=== PATIENT | female | born 1965 | race Caucasian/White ===

== ENCOUNTER 2018-06-21 14:16 | Observation (INO) ==
[2018-06-21] MEDS ORDERED: Aspirin 325 MG Tablet PO ONE (14:36)
--- NOTE | 2018-06-21 14:39 | ED ---
HPI General Chief complaint: Shortness of Breath/Dyspnea Stated complaint: SOB/Tightness Neck Area/Sinus Complaint Time Seen by Provider: 06/21/18 14:24 History of Present Illness HPI narrative: This is a 52-year-old female who presents by private vehicle for evaluation. For the past 5 days she has had dyspnea and chest tightness and a tightness sensation in her neck. Symptoms are constant but worse when she is feeling anxious or thinking about the of her mother. She reports that her mother recently, she traveled to [place] for the from June 06 - June 11. She reports that she has had a cough and congestion and postnasal drip for the past 2-3 weeks for which she has been using Claritin, Benadryl, albuterol inhaler and prednisone. She came to the emergency room today because the chest tightness and dyspnea persisted. She denies any personal history of cardiac disease but she does report paternal history with her father dying of an [place] at age 46. She denies tobacco use. She denies abdominal pain, nausea, vomiting, leg swelling. No history of diabetes, hypertension, hyperlipidemia. No other complaints at this time. Related Data Home Medications Medication Instructions Recorded Confirmed prednisolone 20 mg PO DAILY 06/21/18 06/21/18 Allergies Allergy/AdvReac Type Severity Reaction Status Date / Time Sulfa (Sulfonamide Allergy Generalized Verified 06/21/18 14:22 Antibiotics) Rash Review of Systems ROS: all other systems reviewed are negative PMFSH Social History Social History Substance History: No History of Abuse Smoking Status: Former smoker How Often Do You Have a Drink Containing Alcohol: Never Recent Travel in [facility] within the Last 8 Weeks: No Recent Out of Country Travel within the Last 8 Weeks: No Immunization History Tetanus Immunization: Unsure Exam Narrative Exam Narrative: GENERAL: This is a well-developed well-nourished female who appears anxious. Her vital signs have been reviewed. SKIN: Warm and dry. HEAD: Atraumatic. Normocephalic. EYES: Pupils equal and round. No scleral icterus. No injection or drainage. ENT: No nasal bleeding or discharge. Mucous membranes pink and moist. NECK: Trachea midline. No JVD. CARDIOVASCULAR: Regular rate and rhythm. No murmur appreciated. RESPIRATORY: No accessory muscle use. Clear to auscultation. Breath sounds equal bilaterally. No crackles no wheezing no rhonchi. GASTROINTESTINAL: Abdomen soft, non-tender, nondistended. Hepatic and splenic margins not palpable. MUSCULOSKELETAL: No obvious deformities. No clubbing. No cyanosis. No edema. NEUROLOGICAL: Awake and alert. No obvious cranial nerve deficits. Motor grossly within normal limits. Normal speech. Course Initial Documented Vital Signs Temperature 98.2 F 06/21/18 14:19 Pulse Rate 76 06/21/18 14:19 Respiratory Rate 18 06/21/18 14:19 Blood Pressure 151/71 H 06/21/18 14:19 Pulse Oximetry 99 06/21/18 14:19 Last Documented Vital Signs Temperature 98.2 F 06/21/18 14:19 Pulse Rate 89 06/21/18 14:34 Respiratory Rate 22 06/21/18 14:34 Blood Pressure 154/79 H 06/21/18 14:34 Pulse Oximetry 99 06/21/18 14:34 Medical Decision Making MDM Narrative Medical decision making narrative: The patient was placed on ECG monitoring pulse oximetry. Lab work, chest x-ray ordered. The patient was given 325 mg aspirin 0.5 mg Ativan. EKG reveals sinus rhythm, minimal ST depression in the anterior leads are noted. Lab work and imaging studies have been reviewed. D-dimer is negative. Initial cardiac enzymes are within normal limits. Chest x-ray reveals no acute abnormality's. Liver enzymes are mildly elevated. On reexamination she feels improved. At this point in time the patient was offered admission into the chest pain center for serial cardiac enzymes and rule out purposes and she is agreeable with that. Discussed with my attending who agrees with plan of care. A nighttime dose of Xanax has been ordered. Medical Screen Exam Complete: Yes Emergency Medical Condition: Yes Differential Diagnosis Differential Diagnosis: Anxiety, PE, pneumothorax, bronchitis, pneumonia, acute coronary syndrome, pericarditis, myocarditis Lab Data Result diagrams: 06/21/18 14:36 06/21/18 14:36 Lab Results 06/21/18 06/21/18 06/21/18 Range/Units 14:36 14:36 14:36 WBC 10.6 (4.0-11.0) th/mm3 RBC 4.83 (4.00-5.30) mil/mm3 Hgb 15.0 (11.6-15.3) gm/dL Hct 43.9 (35.0-46.0) % MCV 90.7 (80.0-100.0) fL MCH 31.1 (27.0-34.0) pg MCHC 34.3 (32.0-36.0) % RDW 13.0 (11.6-17.2) % Plt Count 328 (150-450) th/mm3 MPV 7.3 (7.0-11.0) fL Neut % (Auto) 79.3 H (16.0-70.0) % Lymph % (Auto) 15.5 (9.0-44.0) % [place] % (Auto) 4.7 (0.0-8.0) % Eos % (Auto) 0.0 (0.0-4.0) % Baso % (Auto) 0.5 (0.0-2.0) % Neut # (Auto) 8.4 H (1.8-7.7) th/mm3 Lymph # (Auto) 1.6 (1.0-4.8) th/mm3 [place] # (Auto) 0.5 (0.0-0.9) th/mm3 Eos # (Auto) 0.0 (0.0-0.4) th/mm3 Baso # (Auto) 0.1 (0.0-0.2) th/mm3 WBC Differential . Differential Comment Auto diff final PT 10.2 (9.8-11.6) sec INR 1.0 Ratio APTT 24.7 (23.4-31.7) sec D-Dimer Quant (PE/DVT) 0.22 (0.00-0.50) mg/L FEU Sodium 142 (136-145) meq/L Potassium 3.5 (3.5-5.1) meq/L Chloride 110 H (98-107) meq/L Carbon Dioxide 22.3 (21.0-32.0) meq/L Anion Gap 10 (5-15) meq/L BUN 12 (7-18) mg/dL Creatinine 0.82 (0.50-1.00) mg/dL Estimated GFR 73 L (>89) mL/min Random Glucose 120 H (74-106) mg/dL Calcium 8.8 (8.5-10.1) mg/dL Total Bilirubin 0.6 (0.2-1.0) mg/dL AST 26 (15-37) U/L ALT 60 H (10-53) U/L Alkaline Phosphatase 140 H (45-117) U/L Total Creatine Kinase 135 (26-192) U/L CK-MB (CK-2) 1.5 (0.5-3.6) ng/mL Troponin I Less than 0.02 L (0.02-0.05) ng/mL Total Protein 7.9 (6.4-8.2) g/dL Albumin 4.1 (3.4-5.0) g/dL Imaging Data Radiologist's impression: Chest X-Ray 06/21/18 14:36 CONCLUSION: No acute cardiopulmonary process. Discharge Plan Discharge Disposition Patient Disposition: ED Admit(ED Internal Use Only) Discharge Condition Condition: Stable Discharge Order Discharge Orders: ED Use Only Admit Order (Routine); Ordered 06/21/18 Ordered By: Phoenix Esparza Discharge Details Diagnosis: Chest pain Physicians Team ED Provider: Leo Hardin ED Midlevel Provider: Phoenix Esparza Rxs /Orders / Referrals /Forms Prescriptions: No Action prednisolone 5 mg Tablet 20 mg PO DAILY RF: 0 Discharge Interventions Interventions: Vital Signs Last Done: 06/21/18 14:34 Status ED Status: With Doctor
--- NOTE | 2018-06-21 14:53 | XR ---
EXAM DATE: 06/21/2018 2:51 PM EST AGE/SEX: 52 years / Female INDICATIONS: Short of breath, chest tightness. CLINICAL DATA: This is the patient's initial encounter. Patient reports that signs and symptoms have been present for 1 day and indicates a pain score of 0/10. MEDICAL/SURGICAL HISTORY: None. None. COMPARISON: No prior exams available for comparison. FINDINGS: A single AP view of the chest demonstrates the lungs to be symmetrically aerated without evidence of mass, infiltrate or effusion. The cardiomediastinal contours are unremarkable. Osseous structures a re intact. CONCLUSION: No acute cardiopulmonary process. Electronically signed by: Lamont Canas MD Board Certified Radiologist 06/21/2018 2:52 PM EST
[2018-06-21 14:55] LABS: Baso # (Auto) 0.1 th/mm3 (0.0-0.2); Baso % (Auto) 0.5 % (0.0-2.0); Hematocrit 43.9 % (35.0-46.0); Lymph # (Auto) 1.6 th/mm3 (1.0-4.8); Lymph % (Auto) 15.5 % (9.0-44.0); Mean Corpuscular HGB Conc 34.3 % (32.0-36.0); Mean Corpuscular Hemoglobin 31.1 pg (27.0-34.0); Mean Corpuscular Volume 90.7 fL (80.0-100.0); Mean Platelet Volume 7.3 fL (7.0-11.0); Mono # (Auto) 0.5 th/mm3 (0.0-0.9); Mono % (Auto) 4.7 % (0.0-8.0); Neut # (Auto) 8.4 th/mm3 (1.8-7.7); Neut % (Auto) 79.3 % (16.0-70.0); Platelet Count 328 th/mm3 (150-450); Red Blood Count 4.83 mil/mm3 (4.00-5.30); White Blood Count 10.6 th/mm3 (4.0-11.0)
[2018-06-21 15:17] LABS: Activated Partial Thrombo Time 24.7 sec (23.4-31.7); Prothrombin Time 10.2 sec (9.8-11.6)
[2018-06-21 15:21] LABS: D-Dimer 0.22 mg/L FEU (0.00-0.50)
[2018-06-21 15:30] LABS: Alanine Aminotransferase 60 U/L (10-53); Albumin 4.1 g/dL (3.4-5.0); Anion Gap 10 meq/L (5-15); Aspartate Aminotransferase 26 U/L (15-37); Blood Urea Nitrogen 12 mg/dL (7-18); Calcium 8.8 mg/dL (8.5-10.1); Carbon Dioxide 22.3 meq/L (21.0-32.0); Chloride 110 meq/L (98-107); Glomerular Filtration Rate 73 mL/min (>89); Glucose,Random 120 mg/dL (74-106); Potassium 3.5 meq/L (3.5-5.1); Sodium 142 meq/L (136-145)
[2018-06-21 15:34] LABS: Alkaline Phosphatase 140 U/L (45-117); Creatine Kinase 135 U/L (26-192); Total Protein 7.9 g/dL (6.4-8.2)
[2018-06-21 15:47] LABS: Creatine Kinase MB 1.5 ng/mL (0.5-3.6)
[2018-06-21] MEDS ORDERED: ALPRAZolam 0.5 MG Tablet PO ONE (15:51)
[2018-06-21] MEDS ORDERED: Acetaminophen 500 MG Tablet PO PRN (16:58)
[2018-06-21 17:24] LABS: Creatine Kinase 110 U/L (26-192)
[2018-06-21 18:09] VITALS: RESP 16
[2018-06-21 19:40] LABS: Creatine Kinase 89 U/L (26-192)
[2018-06-22 04:39] VITALS: BP 87/51; PULSE 59; TEMP 98.3
[2018-06-22 07:47] VITALS: O2SAT 97
--- NOTE | 2018-06-22 08:01 | P.HPCA ---
History of Present Illness Primary Care Physician: No Primary Care Physician Chief Complaint: Chest pain History of Present Illness: This is a 52-year-old female that presents to ED via private vehicle without history of hypertension, hyperlipidemia, diabetes, CAD complaining of 1 week central chest tightness, some mild shortness of breath, nonproductive cough, and postnasal drainage for the past week. The chest tightness has been constant. Found nothing to worsen. She is found that taking Benadryl seem to help. She is wondering if it is related to anxiety and states she just got back from [place] for the of her mother. Denies nausea or diaphoresis. Denies fevers. There have been sick contacts. Denies swelling in legs or calf pain. Denies history of hypertension, hyperlipidemia, diabetes, and CAD. She is a lifetime non-smoker. She is a schoolteacher. Her father at age 46 of a myocardial infarction. - Diagnosis (1) Atypical chest pain Review of Systems General: Recently traveled to and from [place] her mother's . Patient denies fevers, chills. HEENT: Patient denies headache, sore throat, difficulty swallowing. Complains of postnasal drainage. Cardiovascular: Has the chest discomfort as mentioned above. Denies sensation of heart beating rapidly or irregularly. No syncope. Denies diaphoresis. Respiratory: Planes of mild shortness of breath. Nonproductive cough. Denies inspirational chest discomfort. Denies wheezing or hemoptysis. GI: Patient denies nausea, vomiting, diarrhea, abdominal pain, bloody stools. Musculoskeletal: Patient denies joint pain or edema. Denies calf pain or edema. Neurovascular: Patient denies numbness, tingling, weakness in extremities. Denies headache. Endocrine: Denies polyuria and polydipsia. Hematologic: Denies easy bruising. Skin: Denies rash or itching. PMFSH - History History Provided By: Patient - Tobacco History Second Hand Smoke Exposure: No Tobacco Use In Past 30 Days: No Smoking Status: Former smoker Tobacco Type: Cigarettes - Alcohol History How Often Do You Have a Drink Containing Alcohol: Never - Substance Use History Substance History: No History of Abuse - Travel History Recent Travel in the [place] Within the Last 8 Weeks: No Recent Travel Out of the Country Within the Last 8 Weeks: No - Immunization History Tetanus Immunization: Unsure Medications and Allergies Active Medications: Active Medications Acetaminophen (Tylenol) 500 mg PO Q6H PRN PRN Reason: PAIN SCALE 1-5 Hydrocodone Bitart/Acetaminophen ([place] 7.5/325) 1 tab PO Q6H PRN PRN Reason: PAIN SCALE 6-10 Clonidine HCl (Catapres) 0.1 mg PO Q3H PRN PRN Reason: SBP OVER 165/ DBP OVER 110 Ondansetron HCl (Zofran Inj) 4 mg IV.PUSH Q4H PRN PRN Reason: FOR NAUSEA/VOMITING Sodium Chloride (Ns Flush) 2 ml IV.FLUSH UNSCH PRN PRN Reason: FLUSH AFTER USING IV ACCESS Last Admin: 06/21/18 15:01 Dose: 2 ml Sodium Chloride (Ns Flush) 2 ml IV.FLUSH BID MALKA Last Admin: 06/21/18 21:53 Dose: 2 ml Sodium Chloride (Ns Flush) 2 ml IV.FLUSH PRN PRN PRN Reason: FLUSH AFTER USING IV ACCESS Allergies Allergy/AdvReac Type Severity Reaction Status Date / Time Sulfa (Sulfonamide Allergy Generalized Verified 06/21/18 14:22 Antibiotics) Rash Home Medications Medication Instructions Recorded Confirmed Type prednisolone 20 mg PO DAILY 06/21/18 06/21/18 History Exam Vital signs: Vital Signs 06/21/18 14:19 06/21/18 14:34 06/21/18 16:47 Temperature 98.2 F Pulse Rate 76 89 82 Respiratory Rate 18 22 20 Blood Pressure 151/71 H 154/79 H 91/55 L Pulse Oximetry 99 99 97 06/21/18 18:06 06/21/18 20:00 06/22/18 00:00 Temperature 98.2 F 98.6 F Pulse Rate 72 62 54 L Respiratory Rate 16 16 Blood Pressure 92/53 L 74/45 L Pulse Oximetry 95 96 06/22/18 00:25 06/22/18 03:51 06/22/18 04:00 Temperature 98.6 F 98.3 F Pulse Rate 76 58 L 59 L Respiratory Rate 16 Blood Pressure 76/56 L 93/63 L 87/51 L Pulse Oximetry 98 06/22/18 07:46 Temperature Pulse Rate Respiratory Rate Blood Pressure Pulse Oximetry 97 Intake & Output 06/21/18 06/22/18 06/22/18 18:59 06:59 18:59 Weight 67.132 kg Other: # Voids 0 Weight On Admission 67.132 kg Narrative: GENERAL: This is a well-nourished, well-developed patient, in no apparent distress. Patient speaks in clear complete sentences. Patient is pleasant. HEENT: Head is atraumatic and normocephalic. Neck is supple without lymphadenopathy and trachea is midline. No JVD or carotid bruits. CARDIOVASCULAR: Regular rate and rhythm without murmurs, gallops, or rubs. RESPIRATORY: Clear to auscultation. Breath sounds equal bilaterally. No wheezes , rales, or rhonchi. Chest wall is nontender. No use of accessory muscles. GASTROINTESTINAL: Abdomen is nontender, nondistended. Abdomen soft. No obvious pulsatile mass or bruit. No CVA tenderness. Strong femoral pulses bilaterally. Normal bowel sounds in all quadrants. MUSCULOSKELETAL: Patient is moving upper and lower extremities freely. No calf tenderness or edema, no Homans sign. Strong pulses in upper and lower extremities. NEUROLOGICAL: Patient is alert and oriented. Cranial nerves 2-12 are grossly intact. No focal deficits and speech is clear. SKIN: No rash and turgor is normal. Results 06/21/18 14:36 06/21/18 14:36 Cardiac Enzymes 06/21/18 06/21/18 06/21/18 Range/Units 14:36 16:42 19:00 AST 26 (15-37) U/L CK-MB (CK-2) 1.5 (0.5-3.6) ng/mL Troponin I Less than 0.02 L Less than 0.02 L Less than 0.02 L (0.02-0.05) ng/mL Coagulation 06/21/18 Range/Units 14:36 PT 10.2 (9.8-11.6) sec APTT 24.7 (23.4-31.7) sec CBC 06/21/18 Range/Units 14:36 WBC 10.6 (4.0-11.0) th/mm3 RBC 4.83 (4.00-5.30) mil/mm3 Hgb 15.0 (11.6-15.3) gm/dL Hct 43.9 (35.0-46.0) % Plt Count 328 (150-450) th/mm3 Neut # (Auto) 8.4 H (1.8-7.7) th/mm3 Lymph # (Auto) 1.6 (1.0-4.8) th/mm3 [place] # (Auto) 0.5 (0.0-0.9) th/mm3 Eos # (Auto) 0.0 (0.0-0.4) th/mm3 Baso # (Auto) 0.1 (0.0-0.2) th/mm3 Comprehensive Metabolic Panel 06/21/18 Range/Units 14:36 Sodium 142 (136-145) meq/L Potassium 3.5 (3.5-5.1) meq/L Chloride 110 H (98-107) meq/L Carbon Dioxide 22.3 (21.0-32.0) meq/L BUN 12 (7-18) mg/dL Creatinine 0.82 (0.50-1.00) mg/dL Calcium 8.8 (8.5-10.1) mg/dL AST 26 (15-37) U/L ALT 60 H (10-53) U/L Alkaline Phosphatase 140 H (45-117) U/L Total Protein 7.9 (6.4-8.2) g/dL Albumin 4.1 (3.4-5.0) g/dL Intake and Output 06/21/18 06/22/18 06/22/18 22:59 06:59 14:59 Other: # Voids 0 Weight 67.132 kg Weight On Admission 67.132 kg - Imaging and Cardiology Imaging: Impressions Chest X-Ray 06/21/18 14:36 CONCLUSION: No acute cardiopulmonary process. EKG interpretations - EKG EKG shows: sinus rhythm (EKGs are sinus rhythm without significant ST segment depressions or elevations.) Caprini VTE Risk Assessment Caprini VTE Risk Assessment: No/Low Risk (score <= 1) Caprini Risk Assessment Model: Point Value = 1 Point Value = 2 Point Value = 3 Point Value = 5 Age 41-60 Minor surgery BMI > 25 kg/m2 Swollen legs Varicose veins or History of unexplained or recurrent spontaneous Oral contraceptives or hormone replacement Sepsis (< 1 month) Serious lung disease, including pneumonia (< 1 month) Abnormal pulmonary function Acute myocardial infarction Congestive heart failure (< 1 month) History of inflammatory bowel disease Medical patient at bed rest Age 61-74 Arthroscopic surgery Major open surgery (> 45 min) Laparoscopic surgery (> 45 min) Malignancy Confined to bed (> 72 hours) Immobilizing plaster cast Central venous access Age >= 75 History of VTE Family history of VTE Factor V Leiden Prothrombin [id number] Lupus anticoagulant Anticardiolipin antibodies Elevated serum homocysteine Heparin-induced thrombocytopenia Other congenital or acquired thrombophilia Stroke (< 1 month) Elective arthroplasty Hip, pelvis, or leg fracture Acute spinal cord injury (< 1 month) Prophylaxis Regimen: Total Risk Factor Score Risk Level Prophylaxis Regimen 0-1 Low Early ambulation 2 Moderate Order ONE of the following: *Sequential Compression Device (SCD) *Heparin 5000 units SQ BID 3-4 Higher Order ONE of the following medications: *Heparin 5000 units SQ TID *Enoxaparin/Lovenox 40 mg SQ daily (WT < 150 kg, CrCl > 30 mL/min) *Enoxaparin/Lovenox 30 mg SQ daily (WT < 150 kg, CrCl > 10-29 mL/min) *Enoxaparin/Lovenox 30 mg SQ BID (WT < 150 kg, CrCl > 30 mL/min) AND/OR *Sequential Compression Device (SCD) 5 or more Highest Order ONE of the following medications: *Heparin 5000 units SQ TID (Preferred with Epidurals) *Enoxaparin/Lovenox 40 mg SQ daily (WT < 150 kg, CrCl > 30 mL/min) *Enoxaparin/Lovenox 30 mg SQ daily (WT < 150 kg, CrCl > 10-29 mL/min) *Enoxaparin/Lovenox 30 mg SQ BID (WT < 150 kg, CrCl > 30 mL/min) AND *Sequential Compression Device (SCD) Assessment and Plan - Assessment (1) Atypical chest pain Code(s): R07.89 - Other chest pain Status: Acute - Plan * Atypical chest pain: Patient has had serial cardiac enzymes and EKGs for ruling out purposes. Symptoms appear more atypical and could be related to URI/ anxiety from grieving her mother's recent passing away. She has been seen by Dr. Robert Da Silva of cardiology and the chest pain center. Patient has requested some medication to help with her anxiety, Dr. Da Silva has written a prescription of Xanax 0.25 mg to be taken twice daily as needed for anxiety. She is to follow-up with her physician and return to ED for interval issues. Patient is stable at this time. She is agreeable to this plan. H&P: Quality - VTE Deep Vein Thrombosis/Pulmonary Embolism Present on Admission: No
[2018-06-22] MEDS ORDERED: ALPRAZolam 0.25 MG Tablet PO PRN (08:02)
--- NOTE | 2018-06-22 15:02 | ECG ---
Date Performed: 06/21/2018 Time Performed: 19:10:54 PTAGE: 52 years EKG: Sinus rhythm LEFT ANTERIOR FASCICULAR BLOCK ABNORMAL ECG PREVIOUS TRACING : 06/21/2018 16.49 Since previous tracing, no significant change noted DOCTOR: Robert Da Silva Interpretating Date/Time 06/22/2018 15:02:16
--- NOTE | 2018-06-22 15:02 | ECG ---
Date Performed: 06/21/2018 Time Performed: 16:49:27 PTAGE: 52 years EKG: Sinus rhythm LEFT ANTERIOR FASCICULAR BLOCK ABNORMAL ECG PREVIOUS TRACING : 06/21/2018 14.35 Since previous tracing, no significant change noted DOCTOR: Robert Da Silva Interpretating Date/Time 06/22/2018 15:02:26
--- NOTE | 2018-06-22 15:03 | ECG ---
Date Performed: 06/21/2018 Time Performed: 14:35:52 PTAGE: 52 years EKG: Sinus rhythm LEFT ANTERIOR FASCICULAR BLOCK MINIMAL ST DEPRESSION ABNORMAL ECG INTERPRETATION BASED ON A DEFAULT AGE OF 40 YEARS NO PREVIOUS TRACING DOCTOR: Robert Da Silva Interpretating Date/Time 06/22/2018 15:03:08
== END 2018-06-22 09:12 | disposition home or self-care (01) ==
LOC: NEDA 14:16 → NEPC 14:16 → NEDA 16:53 → NEPHCDU 16:58
PROVIDERS: ADMIT Internal Medicine Cardiovascular Disease; ATTEND Internal Medicine Cardiovascular Disease
DX: R07.89 Other chest pain; F17.210 Nicotine dependence, cigarettes, uncomplicated; R94.31 Abnormal electrocardiogram [ECG] [EKG]; Z88.2 Allergy status to sulfonamides; Z82.49 Family history of ischemic heart disease and other diseases of the circulatory system
CPT/HCPCS: 71010; 71045; 80053; 82550; 82552; 84484; 85025; 85379; 85610; 85730; 87275; 87276; 87804; 90774; 90784; 93005; 96374; 99285; C8952; G0378; J2060